=== PATIENT | male | born 1945 | race Asian ===

== ENCOUNTER 2018-03-10 05:10 | Inpatient (IN) | payer OTHER, MEDICAID ==
[~2018-03-10] VITALS: Ht 165.1 cm; Wt 72.6 kg
[2018-03-10] MEDS ORDERED: NITROGLYCERIN 0.4 MG/TAB BOTTLE SL ONE ×2 (05:30→05:32)
[2018-03-10] MEDS ORDERED: CANA300T PO (05:30)
[2018-03-10] MEDS ORDERED: CELE200C PO (05:30)
[2018-03-10] MEDS ORDERED: CYCL30DR OP (05:30)
[2018-03-10] MEDS ORDERED: LOTE5DRO3 EACHEYE (05:30)
[2018-03-10] MEDS ORDERED: ATEN25TA PO (05:30)
[2018-03-10] MEDS ORDERED: ATOR20TA PO (05:30)
[2018-03-10] MEDS ORDERED: LOSA1TAB36 PO (05:30)
[2018-03-10] MEDS ORDERED: VITAMIN D3 5000 UNIT (05:30)
[2018-03-10] MEDS ORDERED: FLUO-120 PO (05:30)
[2018-03-10] MEDS ORDERED: OLOP2.5D OP (05:30)
[2018-03-10] MEDS ORDERED: GLIP5TAB13 PO (05:30)
[2018-03-10] MEDS ORDERED: IV NORMAL SALINE 500 ML BAG IV ONE (05:30)
[2018-03-10] MEDS ORDERED: METF-440 PO (05:30)
[2018-03-10] MEDS ORDERED: OMEG10006 PO (05:30)
[2018-03-10] MEDS ORDERED: TAMS-3 PO (05:31)
[2018-03-10] MEDS ORDERED: SITA100T PO (05:31)
[2018-03-10 05:36] LABS: BASOPHILS # (AUTO) 0.1 K/uL (0.0-8.0); BASOPHILS % (AUTO) 0.6 % (0.0-2.0); EOSINOPHILS # (AUTO) 0.3 K/uL (0.0-0.7); EOSINOPHILS % (AUTO) 2.9 % (0.0-7.0); HEMATOCRIT 41.4 % (36.7-47.1); HEMOGLOBIN 14.5 g/dL (12.5-16.3); LYMPHOCYTES % (AUTO) 10.2 % (20.5-51.5); MEAN CORPUSCULAR HEMOGLOBIN 32.8 uug (23.8-33.4); MEAN CORPUSCULAR HGB CONC 35 g/dL (32.5-36.3); MEAN CORPUSCULAR VOLUME 93.5 fL (73.0-96.2); MONOCYTES # (AUTO) 0.6 K/uL (2.0-10.0); MONOCYTES % (AUTO) 6.7 % (0.0-11.0); NEUTROPHILS # (AUTO) 7.5 K/uL (1.8-8.9); NEUTROPHILS % (AUTO) 79.6 % (38.5-71.5); PLATELET COUNT (AUTO) 153 K/uL (152-348); RED BLOOD CELL COUNT(AUTO) 4.43 MIL/uL (4.06-5.63); WHITE BLOOD COUNT (AUTO) 9.5 K/uL (3.6-10.2)
[2018-03-10 05:42] LABS: CARBON DIOXIDE 27 mmol/L (21-32); CHLORIDE 99 mmol/L (98-107); CREATININE 1.3 mg/dL (0.6-1.3); GLUCOSE 168 mg/dL (74-106); POTASSIUM 3.5 mmol/L (3.5-5.1); UREA NITROGEN, BLOOD 27 mg/dL (7-18)
[2018-03-10 05:55] LABS: ALANINE AMINOTRANSFERASE 84 U/L (16-63); ALKALINE PHOSPHATASE 87 U/L (50-136); ASPARTATE AMINOTRANSFERASE 189 U/L (15-37); BILIRUBIN,DIRECT 0.8 mg/dL (0.0-0.2); BILIRUBIN,TOTAL 1.3 mg/dL (0.2-1.0); TOTAL PROTEIN, SERUM 7.4 g/dL (6.4-8.2)
[2018-03-10 06:45] VITALS: BP 136/76
[2018-03-10] MEDS ORDERED: IV NS 1000 ML 1,000 ML IV PRN (08:51)
[2018-03-10 08:53] VITALS: BP 121/74
[2018-03-10] MEDS ORDERED: HYDROCODONE/APAP 5-325MG TABLET PO PRN (09:00)
[2018-03-10] MEDS ORDERED: INSULIN REGULAR, HUMAN 300 UNIT/3 ML VIAL SQ PRN (09:00)
[2018-03-10] MEDS ORDERED: Z GUARD REMEDY PASTE 57 GM TUBE TOP PRN (09:00)
[2018-03-10] MEDS ORDERED: TAMSULOSIN HCL 0.4 MG CAP.SR.24H PO SCH (09:00)
[2018-03-10] MEDS ORDERED: MAGNESIUM HYDROXIDE 30 ML LIQUID UDC PO PRN (09:00)
[2018-03-10] MEDS ORDERED: DEXTROSE 50% 50 ML DISP.SYRIN IV PRN (09:00)
[2018-03-10] MEDS ORDERED: ZOLPIDEM 5 MG TABLET PO PRN (09:00)
[2018-03-10] MEDS ORDERED: ASPIRIN EC 81 MG TABLET.DR PO SCH (09:00)
[2018-03-10] MEDS ORDERED: ATENOLOL 25 MG TABLET PO SCH (09:00)
[2018-03-10] MEDS ORDERED: NITROGLYCERIN 0.4 MG/TAB BOTTLE SL PRN (09:00)
[2018-03-10] MEDS ORDERED: ONDANSETRON 4 MG/2 ML VIAL IV PRN (09:00)
[2018-03-10] MEDS ORDERED: CELECOXIB 200 MG CAPSULE PO SCH (09:00)
[2018-03-10] MEDS ORDERED: Medication Not On Formulary EA (Omega-3 Fatty Acids (Omega-3) 1,000 MG) PO SCH (09:00)
[2018-03-10] MEDS ORDERED: ACETAMINOPHEN 325 MG TABLET PO PRN (09:00)
[2018-03-10] MEDS ORDERED: FLUOXETINE HCL 20 MG CAPSULE PO SCH (09:00)
[2018-03-10 09:44] LABS: MAGNESIUM 1.8 mg/dL (1.8-2.4); PHOSPHOROUS 3.2 mg/dL (2.5-4.9)
[2018-03-10] MEDS ORDERED: MAG HYDROX/AL HYDROX/SIMETH 30 ML LIQUID UDC PO PRN (10:30)
[2018-03-10] MEDS ORDERED: MAG HYDROX/AL HYDROX/SIMETH 30 ML LIQUID UDC PO ONE (10:30)
[2018-03-10 11:37] VITALS: BP 133/85
[2018-03-10] MEDS: BLOOD SUGAR DIAGNOSTIC 1 EACH STRIP VI SCH ×2 (11:55→17:15)
[2018-03-10] MEDS ORDERED: LORAZEPAM 2 MG/1 ML VIAL IV ONE (13:10)
[2018-03-10 15:29] VITALS: BP 103/66
[2018-03-10] MEDS ORDERED: LOTEPREDNOL 0.5% EACHEYE SCH ×2 (18:00→21:00)
[2018-03-10] MEDS ORDERED: ATORVASTATIN 20 MG TABLET PO SCH (21:00)
[2018-03-11] MEDS ORDERED: PANTOPRAZOLE SODIUM 40 MG VIAL IV SCH (07:00)
[2018-03-11] MEDS ORDERED: OMEGA-3 FATTY ACIDS/FISH OIL CAPSULE PO SCH (09:00)
[2018-03-11] MEDS ORDERED: OLOPATADINE 0.1% OPHT DROP 5 ML BOTTLE EACHEYE SCH (09:00)
[2018-03-11] MEDS ORDERED: PANTOPRAZOLE SODIUM 40 MG TABLET.DR PO SCH (10:30)
== END 2018-03-10 18:12 | disposition left against medical advice (07) | DRG 392 ==
LOC: ER 05:14 → TELE 06:32
PROVIDERS: ADMIT Nurse Practitioner Acute Care; ATTEND Hospitalist
DX: K21.0 Gastro-esophageal reflux disease with esophagitis (principal); I24.9 Acute ischemic heart disease, unspecified; E86.0 Dehydration; E11.65 Type 2 diabetes mellitus with hyperglycemia; Z79.84 Long term (current) use of oral hypoglycemic drugs; Z79.899 Other long term (current) drug therapy; N40.0 Benign prostatic hyperplasia without lower urinary tract symptoms; E78.5 Hyperlipidemia, unspecified; I10 Essential (primary) hypertension; K29.70 Gastritis, unspecified, without bleeding; R11.10 Vomiting, unspecified; Z72.89 Other problems related to lifestyle; R74.0 Nonspecific elevation of levels of transaminase and lactic acid dehydrogenase [LDH]; R94.31 Abnormal electrocardiogram [ECG] [EKG]
CPT/HCPCS: 36415; 70030-TC; 71045; 83735; 84100; 85025; 85730; 93005; 93307; A4663; G0378; J1815; J2405; J7030; J7040

== ENCOUNTER 2018-03-16 21:35 | Emergency (ER) | payer OTHER, MEDICAID ==
[~2018-03-16] VITALS: Ht 170.2 cm; Wt 70.3 kg
[~2018-03-16 21:35] MED LIST: ATEN25TA PO; ATOR20TA PO; CANA300T PO; CELE200C PO; CYCL30DR OP; FLUO-120 PO; GLIP5TAB13 PO; LOSA1TAB36 PO; LOTE5DRO3 EACHEYE; METF-440 PO; OLOP2.5D OP; OMEG10006 PO; SITA100T PO; TAMS-3 PO; VITAMIN D3 5000 UNIT
--- NOTE | 2018-03-16 21:45 | NUR ---
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 Pt is AAO x 3 and decribes the pain as burning and sharp. Patient arrives to ER with IV right hand 18 gauge. Per paramedics, pt was given aspirin 325 mg and nitro 0.4 mg x 1 tab SL on field. Pt placed on monitor. Safe environment implemented.
[2018-03-16 22:03] LABS: BASOPHILS % (AUTO) 0.8 % (0.0-2.0); EOSINOPHILS # (AUTO) 0.2 K/uL (0.0-0.7); HEMOGLOBIN 14.1 g/dL (12.5-16.3); LYMPHOCYTES # (AUTO) 1.5 K/uL (20.0-40.0); LYMPHOCYTES % (AUTO) 24.7 % (20.5-51.5); MEAN CORPUSCULAR HEMOGLOBIN 32.2 uug (23.8-33.4); MEAN CORPUSCULAR HGB CONC 35 g/dL (32.5-36.3); MEAN CORPUSCULAR VOLUME 91.4 fL (73.0-96.2); MONOCYTES # (AUTO) 0.7 K/uL (2.0-10.0); MONOCYTES % (AUTO) 11.2 % (0.0-11.0); NEUTROPHILS # (AUTO) 3.7 K/uL (1.8-8.9); NEUTROPHILS % (AUTO) 60.3 % (38.5-71.5); PLATELET COUNT (AUTO) 193 K/uL (152-348); RED BLOOD CELL COUNT(AUTO) 4.37 MIL/uL (4.06-5.63); WHITE BLOOD COUNT (AUTO) 6.2 K/uL (3.6-10.2)
[2018-03-16 22:11] LABS: CARBON DIOXIDE 30 mmol/L (21-32); CHLORIDE 101 mmol/L (98-107); GLUCOSE 266 mg/dL (74-106); POTASSIUM 4.4 mmol/L (3.5-5.1); UREA NITROGEN, BLOOD 16 mg/dL (7-18)
[2018-03-16 22:23] LABS: ALANINE AMINOTRANSFERASE 98 U/L (16-63); ALKALINE PHOSPHATASE 167 U/L (50-136); ASPARTATE AMINOTRANSFERASE 42 U/L (15-37); BILIRUBIN,DIRECT 0.6 mg/dL (0.0-0.2); BILIRUBIN,TOTAL 1.2 mg/dL (0.2-1.0); TOTAL PROTEIN, SERUM 7.7 g/dL (6.4-8.2)
[2018-03-16 22:28] LABS: LIPASE 733 U/L (73-393)
[2018-03-16 22:35] LABS: ETHANOL < 3 MG/DL (0-0)
[2018-03-16] MEDS ORDERED: ONDANSETRON 4 MG/2 ML VIAL ONE (22:55)
[2018-03-16] MEDS ORDERED: MORPHINE SULFATE 4 MG/1 ML DISP.SYRIN ONE (22:55)
[2018-03-16] MEDS ORDERED: ONDANSETRON IV *ER 4 MG/2 ML VIAL IV ONE (23:00)
[2018-03-16] MEDS ORDERED: MORPHINE SULFATE 4 MG/1 ML DISP.SYRIN IV ONE (23:00)
--- NOTE | 2018-03-16 23:46 | NUR ---
Dr. Sanchez speaking to Dr. Zaldivar on telephone.
--- NOTE | 2018-03-17 00:08 | NUR ---
CALLED [facility] SPOKE WITH TRI. REQUESTING TO HAVE FACESHEET FAXED TO [phone]
--- NOTE | 2018-03-17 00:45 | NUR ---
TRI CALLED BACK FROM [facility]. [facility]INO WILL NOT BE ABLE TO ACCEPT PATIENT
--- NOTE | 2018-03-17 01:08 | NUR ---
SPOKE TO JOHNNY FROM [facility]. WILL NOT BE ABLE TO ACCEPT PATIENT DUE TO MAX CAPACITY
[2018-03-17] MEDS ORDERED: MORPHINE SULFATE 4 MG/1 ML DISP.SYRIN IV ONE (01:15)
--- NOTE | 2018-03-17 01:15 | NUR ---
SPOKE TO RAISA ELLINGTONIMMIGRATION MANAGER FROM [place]. NO BED AVAILABLE
[2018-03-17] MEDS ORDERED: MORPHINE SULFATE 4 MG/1 ML DISP.SYRIN ONE (01:26)
--- NOTE | 2018-03-17 01:28 | NUR ---
CALLED [facility] AND SPOKE TO NURSING LENS MARKER CHRISTOPHER. 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 UNABLE TO ACCEPT PATIENT
--- NOTE | 2018-03-17 01:59 | NUR ---
CALLED [facility] , SPOKE WITH MICAELA. REQUESTED TO FAX FACESHEET [facility] TO
--- NOTE | 2018-03-17 02:22 | NUR ---
Paged [facility] for panel call. Pending call back from Baldemar Sykes NP.
--- NOTE | 2018-03-17 02:30 | NUR ---
Pt under ER observation at this time. Pt and made aware of plan of care. Will continue to monitor closely, safe environment implemented.
--- NOTE | 2018-03-17 03:14 | NUR ---
CALLED [facility] SPOKE WITH DILIP. FAXED CLINICAL AND FACESHEET REQUESTED
--- NOTE | 2018-03-17 03:45 | NUR ---
Spoke with Peggy from [facility] ([phone]) Peggy provided Dr. Benítez phone number to have ER MD Dr. Sanchez call for consult.
--- NOTE | 2018-03-17 03:50 | NUR ---
Dr. Sanchez on phone with Dr. Lloyd from [facility] ([phone])
--- NOTE | 2018-03-17 03:57 | NUR ---
Per Dr. Sanchez, Dr. Lloyd will accept consult for patient. Peggy from [facility] and will call back with admitting physician Dr. Johnson.
--- NOTE | 2018-03-17 04:01 | NUR ---
Dr. Sanchez on phone with Dr. Johnson.
--- NOTE | 2018-03-17 04:08 | NUR ---
Per Dr. Sanchez, Dr. Johnson will be accepting patient.
--- NOTE | 2018-03-17 04:15 | NUR ---
Spoke with Peggy who will update me for bed and transport as soon as available.
[2018-03-17] MEDS ORDERED: PIPERACILLIN/TAZOBACTAM/D5W 50 ML IV ONE (04:39)
[2018-03-17] MEDS ORDERED: PIPERACILLIN SODIUM/TAZOBACTAM 3.375 G in IV DEXTROSE 5% 50 ML IV ONE (04:45)
--- NOTE | 2018-03-17 06:06 | NUR ---
Darryl Gunderson for transportation to [facility]. ETA 2258 Trip # [id number] Report given to ORLANDO Brown ([phone]; ext:[phone]) Patient going to room [facility]
--- NOTE | 2018-03-17 06:30 | NUR ---
Patient awake and alert at this time and made aware of POC.
[2018-03-17] MEDS ORDERED: CARV12.52 PO (06:39)
--- NOTE | 2018-03-17 07:25 | NUR ---
Report given to receiving primary care nurse.
--- NOTE | 2018-03-17 07:37 | NUR ---
PATIENT IS AWAKE, ALERT, ORIENTED X4 WITH NO NEW COMPLAINTS. AT BEDSIDE.
--- NOTE | 2018-03-17 07:59 | NUR ---
[facility] TO [facility] REPORT WAS [facility] STAFF. REPORT WAS GIVEN TO [facility] STAFF BY NIGHT NURSE. PATIENT IS AWAKE AND ALERT AWARE OF TRANSFER.
== END 2018-03-17 08:03 | disposition short-term general hospital (02) ==
LOC: ER 21:35
DX: K81.0 Acute cholecystitis (principal); K75.9 Inflammatory liver disease, unspecified; K85.90 Acute pancreatitis without necrosis or infection, unspecified; I10 Essential (primary) hypertension; E11.9 Type 2 diabetes mellitus without complications; E78.5 Hyperlipidemia, unspecified; Z79.899 Other long term (current) drug therapy
CPT/HCPCS: 36415; 71045; 74176; 80048; 80076; 83690; 83880; 84484; 85025; 85730; 93005; 96365; 96375; 96376; 99285; G0480; J2270 ×2; J2405; J2543; 70030-TC; A4663

== ENCOUNTER 2021-05-16 16:11 | Inpatient (IN) | payer OTHER ==
[~2021-05-16] VITALS: Ht 160 cm; Wt 66.5 kg
[2021-05-16] MEDS ORDERED: NITROGLYCERIN 0.4 MG/TAB BOTTLE SL ONE ×2 (16:36→16:45)
[2021-05-16] MEDS ORDERED: ASPIRIN 325 MG TABLET ONE (16:37)
[2021-05-16] MEDS ORDERED: PANTOPRAZOLE SODIUM 40 MG VIAL ONE (16:37)
[2021-05-16 16:38] LABS: HEMATOCRIT 43.6 % (36.7-47.1); MEAN CORPUSCULAR HEMOGLOBIN 32.4 uug (23.8-33.4); MEAN CORPUSCULAR VOLUME 95.2 fL (73.0-96.2); PLATELET COUNT (AUTO) 174 K/uL (152-348)
[2021-05-16 16:40] LABS: CARBON DIOXIDE 28 mmol/L (21-32); CHLORIDE 103 mmol/L (98-107); GLUCOSE 165 mg/dL (74-106); POTASSIUM 3.8 mmol/L (3.5-5.1); UREA NITROGEN, BLOOD 25 mg/dL (7-18)
--- NOTE | 2021-05-16 16:43 | NUR ---
2nd dose of Nitro 0.4 mg SL gived, pain 4/10, BP 134/85 HR88.
[2021-05-16] MEDS ORDERED: PANTOPRAZOLE SODIUM 40 MG VIAL IV ONE (16:45)
[2021-05-16] MEDS ORDERED: ASPIRIN 325 MG TABLET PO ONE (16:45)
--- NOTE | 2021-05-16 16:46 | NUR ---
3rd dose of Nitro 0.4 mg SL given for pain 05/19, BP 115/73, HR 89.
[2021-05-16 16:53] LABS: ALANINE AMINOTRANSFERASE 47 U/L (16-63); ALKALINE PHOSPHATASE 93 U/L (50-136); ASPARTATE AMINOTRANSFERASE 36 U/L (15-37); BILIRUBIN,DIRECT 0.5 mg/dL (0.0-0.2); BILIRUBIN,TOTAL 1.2 mg/dL (0.2-1.0)
[2021-05-16] MEDS ORDERED: MORPHINE SULFATE 2 MG/1 ML DISP.SYRIN ONE (17:03)
[2021-05-16] MEDS ORDERED: ONDANSETRON 4 MG/2 ML VIAL ONE (17:03)
[2021-05-16] MEDS ORDERED: ONDANSETRON 4 MG/2 ML VIAL IV ONE (17:15)
[2021-05-16] MEDS ORDERED: MORPHINE SULFATE 2 MG/1 ML DISP.SYRIN IV ONE (17:15)
--- NOTE | 2021-05-16 17:54 | NUR ---
Patient is resting comfortably in bed with eyes closed, NAD noted.
--- NOTE | 2021-05-16 18:04 | NUR ---
Dinner tray provided, pt ate w/ good appettite. No C/O chest pain or shortness of breath at this time.
--- NOTE | 2021-05-16 18:35 | NUR ---
Pt's insurance accepted for pt to stay in [facility]. Pt made aware and agreed.
--- NOTE | 2021-05-16 18:37 | NUR ---
Paged [facility] for admission, awaiting call back from Dr Lewis.
--- NOTE | 2021-05-16 18:50 | NUR ---
Dr Barbosa spoke to Dr Lewis for TELE admit.
[2021-05-16] MEDS ORDERED: ONDANSETRON 4 MG/2 ML VIAL IV PRN (20:45)
[2021-05-16] MEDS ORDERED: MAGNESIUM HYDROXIDE 30 ML LIQUID UDC PO PRN (20:45)
[2021-05-16] MEDS ORDERED: TEMAZEPAM 15 MG CAPSULE PO PRN (20:45)
[2021-05-16] MEDS ORDERED: HYDROCODONE/APAP 5-325MG TABLET PO PRN (20:45)
[2021-05-16] MEDS ORDERED: ACETAMINOPHEN 325 MG TABLET PO PRN (20:45)
[2021-05-16] MEDS ORDERED: ATEN25TA PO (20:46)
[2021-05-16] MEDS ORDERED: ATOR20TA PO (20:48)
[2021-05-16] MEDS ORDERED: CHOL200074 PO (20:52)
[2021-05-16] MEDS ORDERED: FINA5TAB3 PO (20:57)
[2021-05-16] MEDS ORDERED: FLUO20CA42 PO (20:58)
[2021-05-16] MEDS ORDERED: METF-494 PO (20:59)
[2021-05-16] MEDS ORDERED: OMEG1CAP55 PO (20:59)
[2021-05-16] MEDS ORDERED: TAMS-3 PO (21:00)
[2021-05-16] MEDS ORDERED: EMPA25TA PO (21:01)
[2021-05-16] MEDS ORDERED: METO-357 PO (21:07)
[2021-05-16] MEDS ORDERED: NITR0.4T48 SL (21:08)
--- NOTE | 2021-05-16 21:12 | NUR ---
endorsement given to sandy javed at telemetry..
--- NOTE | 2021-05-16 21:20 | NUR ---
Admitted a 76 years old male with Dx of CP. Patient AAOx4. In no acute distress. Denies any chest pain or SOB at this time. Sinus tachy on tele with HR of 106/min. IV site on right FA intact and patent. Routine admission care done. Plan of care initiated. Safety measure initiated and call light within reached
--- NOTE | 2021-05-16 21:27 | NUR ---
patient tranferred to telemetry 327 via wheelchair, alert oriented x 4, denies pain with even unlabored respiration, patients denies chest pain, v/s 138/70, p 86, rr 18, o2 sat 96% room air.
[2021-05-16 21:45] VITALS: BP 140/76
[2021-05-17] VITALS: BP 113/62
--- NOTE | 2021-05-17 00:50 | NUR ---
Patient noted with temp of 101.9 orally. Denies any chest pain. Remains AAOX4. Cooling measure provided and Tylenol 650mg PO given per PRN order. Informed Dr. Robles and awaiting for any new order. Continue to monitor.
--- NOTE | 2021-05-17 01:27 | NUR ---
Spoke to Dr. Robles and updated on patient current condition. No new order given. Latest temp 99.9 orally. Continue with cooling measures. O2 sat fluctuating between 90-92% on RA. Placed patient on O2 at 2LPM [facility] O2 sat went up to 95%. Patient requesting sleeping medication. Will provided Restoril per order. Continue to monitor.
[2021-05-17 04:27] VITALS: BP 105/63
[2021-05-17] MEDS: PANTOPRAZOLE SODIUM 40 MG TABLET.DR PO SCH (06:03)
[2021-05-17 06:23] LABS: HEMATOCRIT 41.4 % (36.7-47.1); MEAN CORPUSCULAR HEMOGLOBIN 32.6 uug (23.8-33.4); MEAN CORPUSCULAR VOLUME 94.8 fL (73.0-96.2); PLATELET COUNT (AUTO) 122 K/uL (152-348)
--- NOTE | 2021-05-17 06:33 | NUR ---
Patient remains AAOx4. In no acute distress. Now afebrile, latest temp 98.4 orally. Remains on O2 at 2LPM via NC. NSR on tele with HR of 100/min. Denies any chest pain. Needs attended to and met. Safety measure maintained and call light within reached.
[2021-05-17 06:40] LABS: BILIRUBIN,TOTAL 1.7 mg/dL (0.2-1.0); CREATININE 1.2 mg/dL (0.6-1.3); MAGNESIUM 2.2 mg/dL (1.8-2.4); PHOSPHOROUS 3.6 mg/dL (2.5-4.9); POTASSIUM 4.1 mmol/L (3.5-5.1); TOTAL PROTEIN, SERUM 7.4 g/dL (6.4-8.2)
[2021-05-17 06:42] LABS: THYROID STIMULATING HORMONE 0.24 mIU/mL (0.358-3.740)
[2021-05-17] MEDS: ASPIRIN EC 81 MG TABLET.DR PO SCH (09:20)
[2021-05-17] MEDS ORDERED: METF-440 PO (11:59)
[2021-05-17 12:00] VITALS: BP 109/71
[2021-05-17] MEDS ORDERED: CYCL30DR EACHEYE (12:45)
[2021-05-17] MEDS ORDERED: DULA0.75 SQ (12:45)
[2021-05-17] MEDS ORDERED: OMEG1CAP55 PO (12:45)
[2021-05-17] MEDS ORDERED: OMEP20CA15 PO (12:45)
[2021-05-17] MEDS ORDERED: FLUO20CA42 PO (12:45)
[2021-05-17] MEDS ORDERED: OXYB-58 PO (12:48)
[2021-05-17] MEDS ORDERED: CHOL200059 PO (12:48)
[2021-05-17] MEDS ORDERED: DESM0.2T23 PO (12:48)
[2021-05-17 16:23] VITALS: BP 107/74
--- NOTE | 2021-05-17 19:09 | NUR ---
Patient remained stable. denies chest pain. Kept on NPO for ultrasound. Kate, [employer] CONSULTANT changed to clear liquid until midnight for the HIDA schedule for tomorrow. Alert/oriented. all due meds given as ordered. kept safe. will endorse to the next shift for continuity of care.
--- NOTE | 2021-05-17 19:30 | NUR ---
PATIENT ALERT ORIENTED, ABLE TO MAKE NEEDS KNOW, NO SOB NO CHEST PAIN, TELE MONITOR SINUS RHYTHM, NO COMPLAIN OF PAIN AT THIS TIME, CONT TO MONITOR.
[2021-05-17 20:46] VITALS: BP 104/72
[2021-05-17] MEDS ORDERED: CIPROFLOXACIN IV 200 ML IV ONE (21:53)
[2021-05-17] MEDS: CIPROFLOXACIN IV 400 MG in PREMIXED 1 EACH IV SCH (22:12)
[2021-05-17] MEDS: IV NS 1000 ML 1,000 ML IV PRN (22:13)
[2021-05-18 00:19] VITALS: BP 103/67
--- NOTE | 2021-05-18 04:30 | NUR ---
PATIENT COMPLAINING OF ABDOMINAL PAIN THAT GOES THRU THE CHEST AREA, GIVEN PAIN MEDS ORDERED, BP 133/85, HR 87, OXYGEN SAT 98%, TELE MONITOR SINUS RHYTHM, PATIENT ALERT ORIENTED, CONT TO MONITOR.
[2021-05-18 04:45] VITALS: BP 133/85
--- NOTE | 2021-05-18 05:34 | NUR ---
PATIENT AWAKE ALERT, RESTING IN BED, NO FURTHER COMPLAIN OF PAIN, CONT TO MONITOR.
[2021-05-18] MEDS: PANTOPRAZOLE SODIUM 40 MG TABLET.DR PO SCH (05:50)
[2021-05-18 06:39] LABS: HEMATOCRIT 38.8 % (36.7-47.1); MEAN CORPUSCULAR VOLUME 94.6 fL (73.0-96.2); PLATELET COUNT (AUTO) 124 K/uL (152-348)
[2021-05-18 06:55] LABS: BILIRUBIN,DIRECT 0.6 mg/dL (0.0-0.2); BILIRUBIN,TOTAL 1.4 mg/dL (0.2-1.0); CREATININE 0.9 mg/dL (0.6-1.3); PHOSPHOROUS 2.5 mg/dL (2.5-4.9); POTASSIUM 3.7 mmol/L (3.5-5.1); TOTAL PROTEIN, SERUM 6.9 g/dL (6.4-8.2)
--- NOTE | 2021-05-18 08:00 | NUR ---
RECEIVED PATIENT IN BED AWAKE ALERT AND VERBALLY RESPONSIVE HE IS NPO AT THIS TIME PENDING HIDA SCAN ORDERED IVF IVF AND IVATB IN PROGRESS ORDERED WITH NO S/S OF INFILTERATION ON SITE CALL LIGHTS AND PERSONAL BELONGINGS ARE WITHIN EASY REACH WILL CONTINUE TO OBSERVE.
[2021-05-18] MEDS ORDERED: TAMSULOSIN HCL 0.4 MG CAP.SR.24H PO SCH ×2 (09:00→21:00)
[2021-05-18] MEDS ORDERED: Medication Not On Formulary EA (Cholecalciferol (Vitamin D3) (Vitamin D3) 1 CAP) PO SCH (09:00)
[2021-05-18] MEDS ORDERED: DESMOPRESSIN 0.1 MG TABLET PO SCH (09:00)
[2021-05-18] MEDS ORDERED: OXYBUTYNIN XL 5 MG TABSR PO SCH (09:00)
--- NOTE | 2021-05-18 10:23 | NUR ---
DR OLENA DÍAZ HERE AND SEEN PATIENT WITH NEW ORDERS AND NOTED
[2021-05-18] MEDS: CHOLECALCIFEROL 1,000 UNIT TABLET PO SCH (10:45)
[2021-05-18] MEDS: ASPIRIN EC 81 MG TABLET.DR PO SCH (10:45)
[2021-05-18] MEDS: FLUOXETINE HCL 20 MG CAPSULE PO SCH (10:45)
[2021-05-18] MEDS: FINASTERIDE 5 MG TABLET PO SCH (10:45)
[2021-05-18] MEDS: METOPROLOL SUCCINATE XL 50 MG TAB.SR.24H PO SCH (10:46)
[2021-05-18] MEDS: ATENOLOL 25 MG TABLET PO SCH (10:46)
[2021-05-18] MEDS: CIPROFLOXACIN IV 400 MG in PREMIXED 1 EACH IV SCH ×2 (10:47→20:16)
[2021-05-18 12:00] VITALS: BP 122/64
--- NOTE | 2021-05-18 12:27 | NUR ---
HYDA SCAN COMPLETED ORDERED AND PER OLENA WANTS PATIENT TO CONTINUE ON CLEAR LIQUIDS DIET UNTIL SHE REVIEWS THE RESULT FOR THE HYDA SCAN PATIENT AWARE REMAIN ON ATB ORDERED WITH O ADVERSE OR ALLERGIC REACTIONS AT THIS TIME.
[2021-05-18] MEDS: IV NS 1000 ML 1,000 ML IV PRN (15:15)
[2021-05-18 20:00] VITALS: BP 117/69
[2021-05-18] MEDS ORDERED: ATORVASTATIN 20 MG TABLET PO SCH (21:00)
--- NOTE | 2021-05-19 | NUR ---
pt refuses IVF at this time; educated with treatment;
[2021-05-19 04:00] VITALS: BP 132/87
--- NOTE | 2021-05-19 05:50 | NUR ---
pt rested well in between care; no acute distress; repositioned for comfort; safety maintained; needs attended
[2021-05-19] MEDS: PANTOPRAZOLE SODIUM 40 MG TABLET.DR PO SCH (06:16)
[2021-05-19 07:04] LABS: HEMATOCRIT 37.7 % (36.7-47.1); MEAN CORPUSCULAR HEMOGLOBIN 33.2 uug (23.8-33.4); MEAN CORPUSCULAR VOLUME 94.1 fL (73.0-96.2); PLATELET COUNT (AUTO) 147 K/uL (152-348)
[2021-05-19 07:17] LABS: BILIRUBIN,DIRECT 0.2 mg/dL (0.0-0.2); BILIRUBIN,TOTAL 0.9 mg/dL (0.2-1.0); CREATININE 0.8 mg/dL (0.6-1.3); MAGNESIUM 1.9 mg/dL (1.8-2.4); PHOSPHOROUS 2.6 mg/dL (2.5-4.9)
[2021-05-19 08:00] VITALS: BP 109/73
--- NOTE | 2021-05-19 08:00 | NUR ---
RECEIVED PATIENT IN BED AWAKE ALERT VERBALLY RESPONDS DENIES CHEST PAIN AT THIS TIME HE IS ON O2 AT 2L/M BY NASAL CANULA WITH NO S/S OF SOB AT THIS TIME.IVF IS OFF PER REPORT PATIENT IS REFUSING FOR IVF TO BE CONNECTED AT THIS TIME.CALL LIGHTS AND HIS PERSONAL BELONGINGS ARE WITHIN EASY REACH WILL CONTINUE TO OBSERVE.
[2021-05-19] MEDS ORDERED: DESMOPRESSIN ACETATE 0.1 MG PO SCH (09:00)
[2021-05-19] MEDS: CHOLECALCIFEROL 1,000 UNIT TABLET PO SCH (09:14)
[2021-05-19] MEDS: FINASTERIDE 5 MG TABLET PO SCH (09:14)
[2021-05-19] MEDS: ASPIRIN EC 81 MG TABLET.DR PO SCH (09:14)
[2021-05-19] MEDS: FLUOXETINE HCL 20 MG CAPSULE PO SCH (09:14)
[2021-05-19] MEDS: CIPROFLOXACIN IV 400 MG in PREMIXED 1 EACH IV SCH (09:15)
[2021-05-19] MEDS: METOPROLOL SUCCINATE XL 50 MG TAB.SR.24H PO SCH (09:16)
[2021-05-19] MEDS: ATENOLOL 25 MG TABLET PO SCH (09:16)
--- NOTE | 2021-05-19 09:39 | NUR ---
IV ANTIBIOTICS CONNECTED ORDERED PATIENT ENCOURAGED TO DO NOT DISCONNECT TO ALLOW AT LEAST THE ATB TO INFUSE EXPRESSED UNDERSTANDING
[2021-05-19] MEDS ORDERED: CIPR-262 PO (09:55)
--- NOTE | 2021-05-19 10:00 | NUR ---
DR OLENA DÍAZ HERE SEEN PATIENT WITH ORDER TO DISCHARGE HOME TODAY PATIENT AWARE AND STATED THAT HER SON WILL BE ABLE TO PICK HIM UP AFTER LUNCH.
[2021-05-19 12:39] VITALS: BP 125/74
--- NOTE | 2021-05-19 13:25 | NUR ---
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
== END 2021-05-19 13:25 | disposition home or self-care (01) | DRG 446 ==
LOC: ER 16:13 → TELE3 21:09
PROVIDERS: ADMIT Nurse Practitioner Acute Care; ATTEND Nurse Practitioner Acute Care
PROC: 05H533Z Insertion of Infusion Device into Right Subclavian Vein, Percutaneous Approach (ICD-10-PCS; principal; 2021-05-18)
PROC: B546ZZA Ultrasonography of Right Subclavian Vein, Guidance (ICD-10-PCS; 2021-05-18)
DX: K80.20 Calculus of gallbladder without cholecystitis without obstruction (principal); I10 Essential (primary) hypertension; E78.5 Hyperlipidemia, unspecified; E11.9 Type 2 diabetes mellitus without complications; F10.10 Alcohol abuse, uncomplicated; Z79.84 Long term (current) use of oral hypoglycemic drugs; Z20.822 Contact with and (suspected) exposure to COVID-19; R74.01 Elevation of levels of liver transaminase levels; E80.6 Other disorders of bilirubin metabolism; R07.89 Other chest pain
CPT/HCPCS: 36415; 71045; 78445; 83690; 83735; 84100; 84443; 84484; 85025; 85730; 93005; 93307; A4663; A9537; C9113; G0378; J0744; J2270; J2405; J7040